=== PATIENT | female | born 1980 | race Caucasian/White ===

== ENCOUNTER 2016-04-30 04:11 | Emergency (ER) | payer SELFPAY ==
[~2016-04-30] VITALS: Ht 160 cm; Wt 51.0 kg
[2016-04-30 04:14] VITALS: BP 136/85; PULSE 91; RESP 15; TEMP 98.3; O2SAT 100
[2016-04-30] MEDS ORDERED: [UNRECOGNIZED DRUG - REMARK] (04:25)
--- NOTE | 2016-04-30 05:24 | PD ---
HPI Chief Complaint: ENT Complaint Time Seen by Provider: 05:20 Travel History International Travel<30 days: No Contact w/Intl Traveler<30days: No Traveled to known affect area: No History of Present Illness HPI Patient comes emergency Department complaining of sore throat that began earlier last night. Patient reports she gets strep frequently and this feels similar. Patient denies any radiation of the pain. Denies any nausea, vomiting , headaches, cough, congestion, chest pain, shortness breath, or known fevers. Patient states she took Motrin for pain prior to coming to the emergency department. Pain is worse with swallowing. PFSH Past Medical History Medical History: Denies Significant Hx ?: Not LMP: CONTROL Social History Alcohol Use: Yes Tobacco Use: Yes Substance Use: Yes Allergies-Medications (Allergen,Severity, Reaction): Coded Allergies: Penicillin (Verified Allergy, Severe, 04/30/16) Reported Meds & Prescriptions Reported Meds & Active Scripts Active Zithromax Z-Danny (Azithromycin) 250 Mg Dspk 250 Mg PO DIRECTED 500 MG (2 tabs) day 1, then 1 tab days 2-5. Reported [ control hormon] Review of Systems Except as stated in HPI: all other systems reviewed are Neg Physical Exam Narrative GENERAL: Well-developed, well nourished, in no acute distress, and non-ill appearing. SKIN: Warm and dry. HEAD: Atraumatic. Normocephalic. EYES: Pupils equal and round. EOMI. No scleral icterus. No injection or drainage. ENT: No nasal bleeding or discharge. Mucous membranes pink and moist. Tympanic membranes are erythematous bilaterally. Posterior pharynx erythematous without exudate. Uvula is midline. No tenderness to facial sinuses throughout. NECK: Trachea midline. No cervical lymphadenopathy. Supple. No nuclear rigidity. CARDIOVASCULAR: Regular rate and rhythm. No murmur appreciated. RESPIRATORY: No accessory muscle use. No respiratory distress. Clear to auscultation. Breath sounds equal bilaterally. MUSCULOSKELETAL: No obvious deformities. No clubbing. No cyanosis. No edema. Full range of motion. NEUROLOGICAL: Awake and alert. No obvious cranial nerve deficits. Motor grossly within normal limits. Normal speech. PSYCHIATRIC: Appropriate mood and affect; insight and judgment normal. Data Data Last Documented VS Vital Signs Date Time Temp Pulse Resp B/P Pulse Ox O2 Delivery O2 Flow Rate FiO2 04/30/16 04:14 98.3 91 15 136/85 100 Room Air Orders Group A Rapid Strep Screen (04/30/16 04:36) Strep Culture (Group A) (04/30/16 04:35) MDM Medical Decision Making Medical Screen Exam Complete: Yes Emergency Medical Condition: Yes Differential Diagnosis Strep pharyngitis, viral pharyngitis, sinusitis, viral syndrome, other Narrative Course Patient looks great, non-ill appearing. The patient is tolerating fluids and is well hydrated. Appears pharyngitis possibly Strep based on history. I suspect the rapid strep is a false-negative. No clinical evidence by history or evaluation to suspect meningitis and/or sepsis. There was no evidence to suggest peritonsillar abscess or retropharyngeal abscess. I discussed with the patient, diagnosis, plan of care and to follow up with the patients primary physician. The patient was given antibiotics. The patient was instructed to return if the worsens in anyway, especially if not tolerating fluids, increased pain or swelling, difficulty swallowing or breathing, or as needed. The patient agreed with plan. Patient in no obvious distress upon re-evaluation. All pertinent laboratory result(s) discussed with patient. Patient was asked if they wanted to speak to my attending, which the patient did not wish to do at this time. Any questions/ concerns in reference to patient diagnosis/condition discussed and clarified prior to patient's discharge. Reinforced sheer importance of close follow up with patient's primary physician or primary care clinic. Instructed patient to return to ED immediately, if symptoms return/worsen. Pt showed understanding of above instructions. Further instructions and recommendations were detailed in discharge paperwork. Pt ambulated without difficulty out of ED at discharge. Diagnosis Primary Impression: Pharyngitis, acute Qualified Code: J02.9 - Acute pharyngitis, unspecified etiology Patient Instructions: General Instructions, Pharyngitis (ED) Additional Instructions: Follow-up with your primary care physician next week for reevaluation. Take all medication as prescribed. Use [id number] Tylenol and/or ibuprofen as needed for pain and/or fevers. Drink plenty of non-caffeinated and nonalcoholic fluids. Return to the emergency department if symptoms get worse. Med/Other Pt SpecificInfo: Prescription(s) given Scripts Azithromycin (Zithromax Z-Danny)250 Mg [id number] Mg PO DIRECTED #1 DSPK Ref 0 500 MG (2 tabs) day 1, then 1 tab days 2-5. Prov:Sienna Lobato DO 04/30/16 Disposition: 01 DISCHARGE HOME Condition: Stable Lazaro Ojeda Apr 30, 2016 05:24
[2016-04-30] MEDS ORDERED: ZITHTAB PO (05:25)
== END 2016-04-30 05:47 | disposition home or self-care (01) ==
LOC: EDBD → NEPB 04:11
DX: J02.9 Acute pharyngitis, unspecified (principal); Z72.0 Tobacco use
CPT/HCPCS: 87081; 87880; 99283